=== PATIENT | male | born 1935 | race Caucasian/White ===

== ENCOUNTER 2017-01-03 17:40 | Emergency (ER) | payer MEDICARE ==
[~2017-01-03] VITALS: Ht 175.3 cm; Wt 93.0 kg
--- NOTE | 2017-01-03 18:05 | Diagnostic Imaging Report ---
INDICATION: Chest pain. COMPARISON: 10/22/2010. FINDINGS: Single frontal view of the chest is obtained. Heart size is normal. The pulmonary vessels appear unremarkable. There is no pneumothorax, mediastinal widening or pleural fluid. The lungs are clear. IMPRESSION: No evidence of an acute cardiopulmonary abnormality. No significant interval change from the prior study. Dictated by: Dictated on workstation # [id number]
--- NOTE | 2017-01-03 18:12 | ED Chest Pain ---
General Chief Complaint: Chest Pain Stated Complaint: INTERMITTENT CP Nursing Triage Note: pt ambulated to room, pt states he has been having intermittent chest pain for approx. 2 weeks. no other pain stated at this time. Nursing Sepsis Screen: No Definite Risk Source: patient Exam Limitations: no limitations History of Present Illness Time seen by provider: 18:10 Initial Comments To ER with intermittent chest pain for the past 2-3 weeks. When this initially started he was a high elevation in [place] while he was walking. He rested and the pain went away. Since his return home he's had intermittent chest pain with activity specifically, mowing the yard. He describes the pain as a tightness across his entire chest. He has no cardiac history that he is aware of. He formerly saw a slitter and rewinder in [place] where he used to reside but has not seen one for several years. Primary care is Dr. Schumacher. He denies any shortness of breath. He does not have chest pain currently nor has he had any chest pain today. He called his regular doctor today who advised he come to the emergency room Timing/Duration: intermittent Severity/Quality: moderate, tightness Location: central Prior CP/Workup: no prior cardiac workup Allergies and Home Medications Allergies Coded Allergies: No Known Drug Allergies (Unverified , 01/03/17) Review of Systems Constitutional: see HPI EENTM: No Symptoms Reported Respiratory: No Symptoms Reported Cardiovascular: See HPI, Chest Pain Gastrointestinal: See HPI Genitourinary: No Symptoms Reported Musculoskeletal: no symptoms reported Skin: no symptoms reported Psychiatric/Neurological: No Symptoms Reported Endocrine: No Symptoms Reported Hematologic/Lymphatic: No Symptoms Reported Past Vjstoeu-Jdoper-Bkddwu Hx Patient Social History Alcohol Use: Occasionally Uses Recreational Drug Use: No Smoking Status: Never a Smoker 2nd Hand Smoke Exposure: No Recent Foreign Travel: No Contact w/Someone Who Travel: No Recent Infectious Disease Expo: No Recent Hopitalizations: No Immunizations Up To Date PED Vaccines UTD: No Seasonal Allergies Seasonal Allergies: No Cardiovascular Cardiac Disorders: Hypertension Physical Exam Vital Signs Vital Sign - Last 12Hours 01/03/17 17:45 Temp 98.6 Pulse 67 Resp 20 B/P (MAP) 177/93 Pulse Ox 97 O2 Delivery Room Air Capillary Refill : Less Than 3 Seconds General Appearance: No Apparent Distress, WD/WN HEENT: PERRL/EOMI, TMs Normal Neck: Full Range of Motion, Normal Inspection Respiratory: No Accessory Muscle Use, No Respiratory Distress Cardiovascular: Regular Rate, Rhythm, Normal Peripheral Pulses Gastrointestinal: Normal Bowel Sounds, Non Tender, Soft Extremity: Normal Capillary Refill, Normal Inspection Neurologic/Psychiatric: Alert Skin: Normal Color, Warm/Dry Progress/Results/Core Measures Results/Orders Lab Results Laboratory Tests Test 01/03/17 18:00 Range/Units White Blood Count 7.2 4.3-11.0 10^3/uL Red Blood Count 4.80 4.35-5.85 10^6/uL Hemoglobin 14.6 13.3-17.7 G/DL Hematocrit 44 40-54 % Mean Corpuscular Volume 92 80-99 FL Mean Corpuscular Hemoglobin 30 25-34 PG Mean Corpuscular Hemoglobin Concent 33 32-36 G/DL Red Cell Distribution Width 13.1 10.0-14.5 % Platelet Count 184 130-400 10^3/uL Mean Platelet Volume 9.9 7.4-10.4 FL Neutrophils (%) (Auto) 49 42-75 % Lymphocytes (%) (Auto) 38 12-44 % Monocytes (%) (Auto) 10 0-12 % Eosinophils (%) (Auto) 2 0-10 % Basophils (%) (Auto) 0 0-10 % Neutrophils # (Auto) 3.5 1.8-7.8 X 10^3 Lymphocytes # (Auto) 2.8 1.0-4.0 X 10^3 Monocytes # (Auto) 0.7 0.0-1.0 X 10^3 Eosinophils # (Auto) 0.2 0.0-0.3 10^3/uL Basophils # (Auto) 0.0 0.0-0.1 10^3/uL Prothrombin Time 12.8 12.2-14.7 SEC INR Comment 1.0 0.8-1.4 Activated Partial Thromboplast Time 27 24-35 SEC Sodium Level 138 135-145 MMOL/L Potassium Level 4.1 3.6-5.0 MMOL/L Chloride Level 101 98-107 MMOL/L Carbon Dioxide Level 25 21-32 MMOL/L Anion Gap 12 5-14 MMOL/L Blood Urea Nitrogen 12 7-18 MG/DL Creatinine 1.10 0.60-1.30 MG/DL Estimat Glomerular Filtration Rate > 60 BUN/Creatinine Ratio 11 0-20 Glucose Level 165 H 70-105 MG/DL Calcium Level 9.3 8.5-10.1 MG/DL Magnesium Level 2.3 1.8-2.4 MG/DL Total Bilirubin 1.0 0.1-1.0 MG/DL Aspartate Amino Transf (AST/SGOT) 30 5-34 U/L Alanine Aminotransferase (ALT/SGPT) 28 0-55 U/L Alkaline Phosphatase 70 40-136 U/L Myoglobin 63.1 10.0-92.0 NG/ML Troponin I < 0.30 <0.30 NG/ML Total Protein 7.5 6.4-8.2 GM/DL Albumin 4.0 3.2-4.5 GM/DL My Orders Orders - CAROLE GARIBAY APRN Cbc With Automated Diff (01/03/17 17:45) Magnesium (01/03/17 17:45) Chest 1 View, Ap/Pa Only (01/03/17 17:45) Ekg Tracing (01/03/17 17:45) Cardiac Profile 1 (01/03/17 17:45) Comprehensive Metabolic Panel (01/03/17 17:45) Myoglobin Serum (01/03/17 17:45) Protime With Inr (01/03/17 17:45) Partial Thromboplastin Time (01/03/17 17:45) O2 (01/03/17 17:45) Monitor-Rhythm Ecg Trace Only (01/03/17 17:45) Lipid Panel (01/04/17 06:00) Saline Lock/Iv-Start (01/03/17 17:45) Metoprolol Succinate (Xl) Tab (Toprol Xl (01/03/17 19:30) Vital Signs/I&O Vital Sign - Last 12Hours 01/03/17 17:45 Temp 98.6 Pulse 67 Resp 20 B/P (MAP) 177/93 Pulse Ox 97 O2 Delivery Room Air Blood Pressure Mean: 121 Departure Communication Progress Notes 4-discussed the case with Dr. Jones. He agrees that the patient can go home given the negative troponin and no ST segment changes on the EKG. He would like the patient to be started on a beta lilian such as Toprol-XL 100 mg by mouth now and the same amount daily. He will see the patient tomorrow in follow-up. She also be on aspirin. He should return to the emergency room for any pain with exertion that does not go away within 5 minutes of resting. Impression Impression: Primary Impression: Angina pectoris Disposition: ADMITTED INPATIENT Condition: Stable Departure-Patient Inst. Decision time for Depature: 19:15 Referrals: ADÁN JONES MD [facility] SHERICE SCHUMACHER MD (PCP/Family) Primary Care Physician Patient Instructions: Angina (DC) Add. Discharge Instructions: 1. If you have pain that persists for 5 minutes after stopping activity U should return to the emergency room 2. Medication as directed 3. Follow-up with Dr. Jones. Call the office tomorrow to make an appointment to be seen. All discharge instructions reviewed with patient and/or family. Voiced understanding. Scripts Metoprolol Succinate (Toprol Xl) 50 Mg Tab.er.24h 50 MG PO DAILY, #10 TAB Prov: CAROLE GARIBAY APRN 01/03/17 Copy Copies To 1: ADÁN JONES MD [facility]; SHERICE SCHUMACHER MD, PETER J APRN Jan 03, 2017 18:12
[2017-01-03 18:23] LABS: BASOPHILS % (AUTO) 0 % (0-10); EOSINOPHILS # (AUTO) 0.2 10^3/uL (0.0-0.3); EOSINOPHILS % (AUTO) 2 % (0-10); LYMPHOCYTES # (AUTO) 2.8 X 10^3 (1.0-4.0); LYMPHOCYTES % (AUTO) 38 % (12-44); MEAN CORPUSCULAR HEMOGLOBIN 30 PG (25-34); MEAN CORPUSCULAR HGB CONC 33 G/DL (32-36); MEAN CORPUSCULAR VOLUME 92 FL (80-99); MEAN PLATELET VOLUME 9.9 FL (7.4-10.4); MONOCYTES # (AUTO) 0.7 X 10^3 (0.0-1.0); MONOCYTES % (AUTO) 10 % (0-12); NEUTROPHILS # (AUTO) 3.5 X 10^3 (1.8-7.8); NEUTROPHILS % (AUTO) 49 % (42-75); PLATELET COUNT 184 10^3/uL (130-400); RED CELL DISTRIBUTION WIDTH 13.1 % (10.0-14.5); WHITE BLOOD COUNT 7.2 10^3/uL (4.3-11.0)
[2017-01-03 18:30] LABS: PROTHROMBIN TIME PATIENT 12.8 SEC (12.2-14.7)
[2017-01-03 18:34] LABS: ALANINE AMINOTRANSFERASE 28 U/L (0-55); ANION GAP 12 MMOL/L (5-14); ASPARTATE AMINO TRANSFERASE 30 U/L (5-34); BLOOD UREA NITROGEN 12 MG/DL (7-18); BUN/CREATININE RATIO 11 (0-20); CALCIUM 9.3 MG/DL (8.5-10.1); CARBON DIOXIDE 25 MMOL/L (21-32); CHLORIDE 101 MMOL/L (98-107); GFR ESTIMATED > 60; GLUCOSE 165 MG/DL (70-105); HEMOLYSIS 25 (0-29); ICTERUS 0.9 (0-1.9); LIPEMIA 81 (0-49); MAGNESIUM 2.3 MG/DL (1.8-2.4); POTASSIUM 4.1 MMOL/L (3.6-5.0); SODIUM 138 MMOL/L (135-145); TOTAL PROTEIN 7.5 GM/DL (6.4-8.2)
[2017-01-03 18:41] LABS: MYOGLOBIN SERUM 63.1 NG/ML (10.0-92.0)
[2017-01-03] MEDS ORDERED: METO-352 PO (19:23)
[2017-01-03 19:27] VITALS: BP 167/87
[2017-01-03] MEDS ORDERED: meTOproloL SUCCINATE 50 MG (TOPROL XL) TAB PO SCH (19:30)
== END 2017-01-03 19:27 | disposition other institution (70) ==
LOC: ER 17:43
DX: I20.9 Angina pectoris, unspecified (principal); I10 Essential (primary) hypertension
CPT/HCPCS: 36415; 71010; 80053; 83735; 83874; 84484; 85025; 85610; 85730; 93005; 93041

== ENCOUNTER 2017-03-06 07:38 | Day surgery (SDC) | payer MEDICARE ==
[~2017-03-06] VITALS: Ht 175.3 cm; Wt 92.1 kg
[2017-03-06] VITALS (10 sets, daily range): BP systolic 114–154; BP diastolic 69–79
[~2017-03-06 07:38] MED LIST: METO-352 PO
[2017-03-06] MEDS ORDERED: HEParin (CATH LAB) 2,000 ML IV ONE (07:43)
[2017-03-06] MEDS ORDERED: NS IV 1000 ML 1,000 ML ONE (07:43)
[2017-03-06] MEDS ORDERED: NS IV 1000 ML 1,000 ML IV SCH ×3 (07:53→12:00)
[2017-03-06 08:20] LABS: MEAN PLATELET VOLUME 9.5 FL (7.4-10.4); RED BLOOD COUNT 5.16 10^6/uL (4.35-5.85); RED CELL DISTRIBUTION WIDTH 12.9 % (10.0-14.5); WHITE BLOOD COUNT 6.5 10^3/uL (4.3-11.0)
[2017-03-06 08:30] LABS: INR 1.1 (0.8-1.4); PROTHROMBIN TIME PATIENT 13.8 SEC (12.2-14.7)
[2017-03-06] MEDS ORDERED: ATOR20TA66 PO (08:36)
[2017-03-06] MEDS ORDERED: ENAL2.5T PO (08:37)
[2017-03-06] MEDS ORDERED: TAMS0.4C2 PO (08:38)
[2017-03-06] MEDS ORDERED: AMLO5TAB2 PO (08:39)
[2017-03-06 08:51] LABS: ALANINE AMINOTRANSFERASE 27 U/L (0-55); ALBUMIN 4.4 GM/DL (3.2-4.5); ANION GAP 9 MMOL/L (5-14); ASPARTATE AMINO TRANSFERASE 27 U/L (5-34); BILIRUBIN,TOTAL 2.1 MG/DL (0.1-1.0); BLOOD UREA NITROGEN 12 MG/DL (7-18); BUN/CREATININE RATIO 12; CALCIUM 9.7 MG/DL (8.5-10.1); CARBON DIOXIDE 26 MMOL/L (21-32); CHLORIDE 102 MMOL/L (98-107); CHOLESTEROL 117 MG/DL (< 200); CREATININE SERUM 0.98 MG/DL (0.60-1.30); DIRECT LDL 53 MG/DL (1-129); GFR ESTIMATED > 60; GLUCOSE 125 MG/DL (70-105); POTASSIUM 4.1 MMOL/L (3.6-5.0); SODIUM 137 MMOL/L (135-145); TOTAL PROTEIN 7.7 GM/DL (6.4-8.2); TRIGLYCERIDES 70 MG/DL (<150); VLDL CHOLESTEROL 14 MG/DL (5-40)
[2017-03-06] MEDS ORDERED: diphenhydrAMINE 50 MG/ML INJ (BENADRYL) ONE (10:33)
[2017-03-06] MEDS ORDERED: fentaNYL INJECTION 100 MCG/2 ML AMP ONE (10:33)
[2017-03-06] MEDS ORDERED: MIDAZOLAM 5 MG/5 ML (VERSED) VIAL ONE (10:33)
--- NOTE | 2017-03-06 10:55 | Cardiac Procedure Note-CS/ASA ---
Pre-Procedure Note Pre-Op Procedure Note H&P Reviewed The H&P was reviewed, patient examined and no changes noted. Date H&P Reviewed: Mar 06, 2017 Time H&P Reviewed: 10:54 Conscious Sedation Pre-Proced Time Reviewed: 10:54 ASA Class: 2 Airway Mallampati Classification: ([place] appropriate class) I. II. III, IV Lungs Heart ASA score ASA 1: a normal healthy patient ASA 2: a patient with a mild systemic disease (mid diabetes, controlled hypertension, obesity ASA 3: a patient with a severe systemic disease that limits activity (angina , COPD, prior Myocardial infarction) ASA 4: a patient with an incapacitating disease that is a constant threat to life (CHF, renal failure) ASA 5: a moribund patient not expected to survive 24 hrs. (ruptured aneurysm) ASA 6: a declared brain patient whose organs are being harvested. For emergent operations, add the letter E after the classification Grade 2 Sedation Plan: Analgesia, Amnesia, Plan communicated to team members, Discussed options with patient/fam, Discussed risks with patient/fam Note The patient is an appropriate candidate to undergo the planned procedure, sedation, and anesthesia. The patient immediately re-assessed prior to indication. ADÁN LAGUNAS MD FACP [facility]S Mar 06, 2017 10:55
[2017-03-06] MEDS ORDERED: PATIENT MAY USE OWN MEDS, ALL PO SCH (12:00)
[2017-03-06] MEDS ORDERED: ASPI-999 PO (12:02)
--- NOTE | 2017-03-06 12:04 | Discharge Inst-Cardiology ---
Discharge Inst-Cardiac Discharge Medications New Medications: Aspirin (Aspirin) 81 Mg Tab.chew 81 MG PO DAILY, #90 TAB 3 Refills Continued Medications: Amlodipine Besylate (Amlodipine Besylate) 5 Mg Tablet 5 MG PO DAILY, TAB Atorvastatin Calcium (Atorvastatin Calcium) 20 Mg Tablet 20 MG PO HS, TAB Enalapril Maleate (Enalapril Maleate) 2.5 Mg Tablet 2.5 MG PO DAILY, TAB Tamsulosin HCl (Tamsulosin HCl) 0.4 Mg Cap.er.24h 0.4 MG PO DAILY, ADÁN LEHMAN MD FACP [facility] CCDS Mar 06, 2017 12:04
--- NOTE | 2017-03-06 12:04 | Discharge Inst-Post CATH ---
Discharge Inst-CATH Post Cardiac Cath D/C Inst Follow Up/Plan F/u with Dr Jones in 2 weeks CARDIAC CATH DISCHARGE INSTRUCTIONS *Hold Metformin for 48 hours post heart cath. ACTIVITY * Go Home directly and rest. * Limit activity of the leg (or wrist if it was used) for 7 days including aerobics, swimming, jogging, bicycling, etc. * Restrict stair-climbing for 7 days if possible, if not, climb up with your non -cath leg, then bring together on the same step. * Avoid lifting, pushing, pulling or excessive movement of the affected extremity for 7 days. * Customary sexual activity may be resumed after 2 days-use caution not to use a position that strains or causes pain to the affected extremity. * No driving for 24 hours. * NO SMOKING. * Avoid straining for bowel movements for 7 days. * Gentle walking on level ground is allowed. * Returning to work will depend on the type of procedure and the results. Your doctor will discuss this with you. CALL YOUR DOCTOR FOR ANY OF THE FOLLOWING: *If bleeding from the puncture site occurs- Apply gentle pressure to site with clean cloth and call your doctor or EMS. * If a knot or lump forms under the skin, increases in size, or causes pain. * If bruising appears to be worsening or moving further down your leg instead of disappearing. * Temperature above 101 F. CARE OF YOUR GROIN INCISION; * Bruising or purple discoloration of the skin near the puncture site is common. * You may shower only, no bathtub bathing for 5 days. Be careful to avoid slipping as your leg may feel stiff. * If a closure device was used on your femoral artery, please see the attached guide regarding care of the device and your leg. * REMOVE the dressing from your groin the next day after your procedure in the shower. CARE OF YOUR WRIST INCISION; * Bruising or purple discoloration of the skin near the puncture site is common. * You may shower. * DO NOT submerge wrist. * Remove dressing in 24 hours. ADÁN JONES MD [facility] Mar 06, 2017 12:03
--- NOTE | 2017-03-06 16:35 | CARDIAC CATHETERIZATION ---
DATE OF SERVICE: 03/06/2017 HISTORY OF PRESENT ILLNESS: The patient is an 81-year-old man who has multiple coronary artery disease risk factors and has been experiencing exertional chest discomfort suggestive of new angina. Cardiac catheterization was carried out today after having obtained an informed consent. PROCEDURE: He was brought to the cardiac catheterization laboratory in a fasting state. Right groin was prepared and draped in the usual sterile fashion. Lidocaine 1% was used for local anesthesia. Modified Seldinger technique was used to advance a 5-Romanian sheath into the right femoral artery. We initially used 5-Romanian diagnostic catheters, but there was marked tortuosity of the aortoiliac system and of the thoracoabdominal aorta and there was difficulty with advancement of the catheter alvarez and torque. We exchanged the sheath over a long wire for a long 6-Romanian sheath and were subsequently able to carry out left coronary angiography with a 6-Romanian JL4.5 catheter, right coronary angiography with 6-Romanian JR4 catheter, aortic root angiography with 5-Romanian pigtail catheter, left heart catheterization and left ventricular angiography with 5-Romanian pigtail catheter, and aortic arch angiography with 5-Romanian pigtail catheter. The catheter was then removed. Angiography of the right femoral artery had been carried out through the sheath at the time of sheath insertion. At the end of the procedure, Mynx was used to achieve hemostasis. He tolerated the procedure well. HEMODYNAMICS: Left ventricular end-diastolic pressure following coronary angiography was 4 mmHg. There was no significant pressure gradient on pullback across the aortic valve. Ascending aortic pressure was 116/64 with a mean of 86 mmHg. CORONARY ANGIOGRAPHY: There is diffuse coronary calcification. Left main coronary artery has approximately 30% stenosis. Left anterior descending artery is heavily calcified and has multiple 30 to 40% stenosis in its proximal and mid portions. Left circumflex artery is diminutive. Third, it does not exhibit significant disease. Right coronary artery is large and dominant and is quite ectatic in its distal portion. There does not appear to be significant obstructive disease in the right coronary artery. AORTIC ROOT ANGIOGRAPHY: Aortic root angiography indicates tortuosity of the aortic root and the ascending aorta. There is no significant aortic regurgitation. Coronary arteries are identified. There is no aneurysm or dissection. AORTIC ARCH ANGIOGRAPHY: Aortic arch angiography did not indicate any significant thoracic aortic aneurysm or dissection. There is, however, considerable tortuosity of the descending thoracic aorta extending into the abdominal aorta. The neck arteries, to the extent visualized, did not exhibit significant disease. LEFT VENTRICULAR ANGIOGRAPHY: Left ventricular angiography was carried out in the left anterior oblique view only. No regional wall motion abnormalities are seen. There does not appear to be significant mitral regurgitation. Left ventricular ejection fraction is approximately 60-65%. CONCLUSIONS: 1. Moderate diffuse coronary artery disease as detailed above. 2. Normal left ventricular end-diastolic pressure. 3. No significant mitral regurgitation. 4. Normal global left ventricular systolic function with an ejection fraction of 60%-65%. DISCUSSION AND RECOMMENDATIONS: Based on results of the study, it appears appropriate to continue a conservative approach. Risk factor modification has been reviewed with him. Outpatient followup is advised. Job ID: [id number] DocumentID: [id number] Dictated Date: 03/06/2017 11:58:01 Equipment Records Supervisor Date: 03/06/2017 15:00:02 Dictated By: ADÁN LAGUNAS MD, MA, FACP, FACC,
== END 2017-03-06 15:20 | disposition home or self-care (01) ==
LOC: CATH 07:38 → SURG 12:36 → CATH 15:20
PROVIDERS: ATTEND Internal Medicine Cardiovascular Disease
DX: R07.89 Other chest pain (principal); I25.10 Atherosclerotic heart disease of native coronary artery without angina pectoris; I25.84 Coronary atherosclerosis due to calcified coronary lesion; I10 Essential (primary) hypertension; E78.5 Hyperlipidemia, unspecified; R73.09 Other abnormal glucose; I44.0 Atrioventricular block, first degree; I45.10 Unspecified right bundle-branch block; Z79.899 Other long term (current) drug therapy
CPT/HCPCS: 36221; 36415; 80053; 80061; 85027; 85610; 85730; 87081; 93005; 93458; 93567

== ENCOUNTER → 2021-03-16 | Outpatient (CLI) | payer MEDICARE ==
[~2021-03-16] VITALS: Ht 172.7 cm; Wt 94.0 kg
[~2021-03-16] MED LIST changes: +AMLO-250 PO; +AMLO-251 PO; +ASPI-999 PO; +ATOR20TA66 PO; +ATOR40TA70 PO; +DOCU100C37 PO; +ENLP2.5T PO; +FAMO20TA3 PO; +TAMS0.4C2 PO
== END ==
LOC: PREOP 11:09
PROVIDERS: ATTEND Surgery
DX: Z01.818 Encounter for other preprocedural examination (principal)

== ENCOUNTER 2021-03-18 11:24 | Day surgery (SDC) | payer MEDICARE ==
[2021-03-18] VITALS (11 sets, daily range): BP systolic 111–170; BP diastolic 67–85
[~2021-03-18] VITALS: Ht 172.7 cm; Wt 94.0 kg
[2021-03-18] MEDS ORDERED: MIDAZOLAM 5 MG/5 ML (VERSED) VIAL IV ONE (11:30)
[2021-03-18] MEDS ORDERED: NS IV 500 ML 500 ML IV PRN (11:30)
[2021-03-18] MEDS ORDERED: LIDOCAINE JELLY 2% 6 ML SYRINGE MM PRN (11:30)
[2021-03-18] MEDS ORDERED: fentaNYL INJ 100 MCG/2 ML AMP IVP ONE (11:30)
[2021-03-18] MEDS ORDERED: NS IV 500 ML 500 ML ONE (11:31)
--- NOTE | 2021-03-18 13:22 | Conscious Sedation/ASA ---
Conscious Sedation Pre-Proced Time 12:00 ASA Score 2 For ASA 3 and 4: Consider anesthesia and medical clearance. Also, for patients with a history of failed moderate sedation consider anesthesia. Airway Lungs Heart ASA score ASA 1: a normal healthy patient ASA 2: a patient with a mild systemic disease (mid diabetes, controlled hypertension, obesity ASA 3: a patient with a severe systemic disease that limits activity (angina, COPD, prior Myocardial infarction) ASA 4: a patient with an incapacitating disease that is a constant threat to life (CHF, renal failure) ASA 5: a moribund patient not expected to survive 24 hrs. (ruptured aneurysm) ASA 6: a declared brain- patient whose organs are being harvested. For emergent operations, add the letter E after the classification Mallampati Classification Grade 2 Sedation Plan Analgesia, Amnesia, Plan communicated to team members, Discussed options with patient/fam, Discussed risks with patient/fam The patient is an appropriate candidate to undergo the planned procedure, sedation, and anesthesia. The patient immediately re-assessed prior to indication. ALLISON BEAULIEU MD Mar 18, 2021 13:22
--- NOTE | 2021-03-18 13:23 | Progress Note-Pre Operative ---
Pre-Operative Progress Note H&P Reviewed The H&P was reviewed, patient examined and no changes noted. Date Seen by Provider: Mar 18, 2021 Time Seen by Provider: 12:00 Date H&P Reviewed: Mar 18, 2021 Time H&P Reviewed: 12:00 Pre-Operative Diagnosis: screening, constipation, difficulty defacation ALLISON BEAULIEU MD Mar 18, 2021 13:23
--- NOTE | 2021-03-18 13:24 | Progress Note-Post Operative ---
Post-Operative Progess Note Surgeon (s)/Graduate Engineer (s) Surgeon ALLISON BEAULIEU MD Graduate Engineer: none Pre-Operative Diagnosis screening, constipation, difficulty defacation Post-Operative Diagnosis anal stenosis, mod sigmoid diveticulosis. Procedure & Operative Findings Date of Procedure 03/18/21 Procedure Performed/Findings colonoscopy, anal dilatation Anesthesia Type cs Estimated Blood Loss Estimated blood loss (mL): minimal Specimens/Packing Specimens Removed none ALLISON BEAULIEU MD Mar 18, 2021 13:24
--- NOTE | 2021-03-18 13:25 | Discharge Inst-Surgical ---
D/C Lap Instructions-CHRISTOFER Follow Up Appt in 1 week Activity as tolerated High Fiber Diet 25g or more per day Avoid Alcohol, Caffeine, Spicy [place] and Acid foods. Drink 64 fluid oz or more of fluids per day. Symptoms to Report: Fever over 101 degree F, Nausea/Vomiting If any problems/questions: Contact your physician or go to Emergency Room ALLISON BEAULIEU MD Mar 18, 2021 13:25
[2021-03-18] MEDS ORDERED: ONDANSETRON 4 MG (ZOFRAN) ORAL DISSOLVE TAB PO PRN (13:30)
[2021-03-18] MEDS ORDERED: ONDANSETRON 4 MG/2 ML (SDV) Z0FRAN IVP PRN (13:30)
--- NOTE | 2021-03-18 17:55 | OPERATIVE REPORT ---
DATE OF SERVICE: 03/18/2021 ATTENDING PRIMARY CARE PHYSICIAN: Dr. Paul Ramirez. PREOPERATIVE DIAGNOSIS: Constipation, difficult defecation. POSTOPERATIVE DIAGNOSES: Anal stenosis, moderate sigmoid diverticulosis. PROCEDURES PERFORMED: Digital dilatation anus and colonoscopy. SURGEON: Allison Beaulieu MD. ANESTHESIA: Conscious sedation. ESTIMATED BLOOD LOSS: Minimal. FINDINGS: Significant anal stenosis identified with the diameter of the anal outlet approximately 1.5 cm in size. DISPOSITION: The patient tolerated the procedure well. INDICATIONS FOR PROCEDURE: The patient is an 86-year-old male referred over to us for screening colonoscopy. He has had difficulty with defecation and has struggled with constipation for many years. He also does report a significant history of hemorrhoidal issues requiring four surgeries. He does not report any red blood per rectum nor any dark tarry stools. DESCRIPTION OF PROCEDURE: The patient was brought to the endoscopy suite and laid in left lateral decubitus position. After adequate IV pain and sedative medications and conscious sedation anesthesia, a digital rectal examination was performed. A significant anal stenosis was identified and it was difficult to intubate one fingerbreadth without significant pain. The estimated diameter was approximately 1.5 cm in size. There were no recurrent hemorrhoids. The endoscope was then intubated into the anus and the rectum gently insufflated. The endoscope was then advanced to the valves of Mccabe of the rectum with no polyps or any neoplasms identified. The endoscope was then advanced through the sigmoid colon, where a moderate sigmoid diverticulosis identified. There were no mucosal inflammatory changes to indicate any active diverticulitis. The endoscope was then advanced to the remainder of the descending, transverse and ascending colon to the cecum, which were normal. The endoscope was then slowly withdrawn while taking a second look and suctioning of residual air with no additional findings. The patient tolerated the procedure well. The root of his symptomatology is due to the anal stenosis and due to this and the pain associated with dilatation, we will recommend an anal exam under anesthesia as well as dilatation as well as possible rectal mucosa advancement flap. Job ID: [id number] DocumentID: [id number] Dictated Date: 03/18/2021 13:02:54 Php Programmer Date: 03/18/2021 17:55:14 Dictated By: ALLISON BEAULIEU MD MTDD
== END 2021-03-18 13:45 | disposition home or self-care (01) ==
LOC: ENDO 11:24
PROVIDERS: ATTEND Surgery
DX: K57.30 Diverticulosis of large intestine without perforation or abscess without bleeding (principal); K62.4 Stenosis of anus and rectum; I10 Essential (primary) hypertension; E78.00 Pure hypercholesterolemia, unspecified; N40.0 Benign prostatic hyperplasia without lower urinary tract symptoms; K21.9 Gastro-esophageal reflux disease without esophagitis; Z79.899 Other long term (current) drug therapy

== ENCOUNTER → 2022-11-08 | Outpatient (CLI) | payer MEDICARE | LOC: CARD 13:27 | PROVIDERS: ATTEND Internal Medicine Cardiovascular Disease | DX: I35.8 Other nonrheumatic aortic valve disorders (principal); I25.10 Atherosclerotic heart disease of native coronary artery without angina pectoris | CPT/HCPCS: 93306 ==

== ENCOUNTER → 2022-11-21 | Outpatient (CLI) | payer MEDICARE ==
[~2022-11-21] MED LIST changes: +CATHETER FLUSH 10 ML SYR IVP PRN; +REGADENOSON 0.4 MG/5 ML SYR (LEXISCAN) IV ONE
--- NOTE | 2022-11-22 15:33 | STRESS TEST ---
DATE OF SERVICE: 11/21/2022 RESTING AND POST REGADENOSON TECHNETIUM-99M TETROFOSMIN SPECT CT IMAGING ORDERING PHYSICIAN: Nida Rodriguez APRN. PRIMARY PHYSICIAN: Dr. Ramirez. OTHER PHYSICIAN: Dr. Lagunas. CLINICAL DIAGNOSIS: Coronary artery disease. Baseline images were carried out after injection of 10.58 mCi of technetium-99m tetrofosmin. This was followed by 0.4 mg regadenoson and 32.6 mCi of technetium-99m tetrofosmin for stress imaging. The electrocardiogram showed sinus rhythm at baseline. It did not change significantly with the regadenoson infusion. There was subtle, nonspecific ST abnormality. This did not change. The patient tolerated the procedure well. Review of images at rest and following stress does not indicate any significant perfusion defects consistent with myocardial ischemia or infarction. Gated images show normal global left ventricular systolic function with normal regional wall motion. Left ventricular ejection fraction is calculated to be 73%. CONCLUSIONS: 1. No evidence of any significant myocardial ischemia or infarction on this study. 2. Normal regional wall motion. 3. Normal global left ventricular systolic function with a calculated ejection fraction of 73%. Job ID: [id number] DocumentID: [id number] Dictated Date: 11/22/2022 12:41:56 Mechanical Systems Designer Date: 11/22/2022 15:31:00 Dictated By: ADÁN LAGUNAS MD; SAM; FACP; FACC;
== END ==
LOC: CARD 07:30
PROVIDERS: ATTEND Nurse Practitioner Family
DX: I25.10 Atherosclerotic heart disease of native coronary artery without angina pectoris (principal)
CPT/HCPCS: 78452; 93017; A9502